=== PATIENT | female | born 1990 | race American Indian/Alaskan Native ===

== ENCOUNTER 2017-04-10 22:06 | Emergency (ER) | payer MEDICAID ==
--- NOTE | 2017-04-11 00:33 | Emergency Department Report ---
HPI - General Chief Complaint: Dental/Oral Time Seen by Provider: 04/11/17 00:17 - HPI HPI: The patient is a 26 year-old female who presents to ED complaining of 8/10 pain in the right side of her mouth x today . Patient states that the pain started this morning, The pain is exacerbated by eating and opening of the mouth. Patient states the pain is alleviated initially with pain medication but comes back. Patient states that it radiates towards ear. Patient describes a as a throbbing, pressure-like sensation. Patient states otherwise well and has no other complaints. Patient has had no fevers and no chills. No chest pain, no shortness of breath. No abdominal pain. No shortness of breath or recent trauma to the face. ED Past Medical Hx - Past Medical History Hx Congestive Heart Failure: No Hx Diabetes: No Hx Psychiatric Treatment: Yes (depression) Hx Asthma: No Hx COPD: No Additional medical history: ULCERATIVE COLITIS - Surgical History Additional Surgical History: Right Hip Surgery. Right Knee surgery. - Social History Smoking Status: Current Every Day Smoker Substance Use Type: None - Medications Home Medications: Home Medications Medication Instructions Recorded Confirmed Last Taken Type Pantoprazole [Protonix TAB] 20 mg PO QDAY #15 tablet. 05/28/15 08/05/15 1 Month Ago Rx QUEtiapine [SEROquel] 200 mg PO TID 08/05/15 08/05/15 1 Month Ago History clonazePAM [KlonoPIN] 2 mg PO DAILY 08/05/15 08/05/15 1 Month Ago History Acetaminophen/Codeine [Tylenol 1 tab PO Q6H #12 tablet 04/11/17 Unknown Rx /Codeine # 3 tab] Amoxicillin [Trimox CAP] 500 mg PO BID #20 capsule 04/11/17 Unknown Rx ED Review of Systems ROS: Stated complaint: SWOLLEN MOUTH Other details as noted in HPI Constitutional: denies: chills, fever Eyes: denies: eye pain, eye discharge, vision change ENT: dental pain. denies: ear pain, throat pain Respiratory: denies: cough, shortness of breath, wheezing Cardiovascular: denies: chest pain, palpitations Endocrine: no symptoms reported Gastrointestinal: denies: abdominal pain, nausea, diarrhea Genitourinary: denies: urgency, dysuria, discharge Musculoskeletal: denies: back pain, joint swelling, arthralgia Skin: denies: rash, lesions Neurological: denies: headache, weakness, paresthesias Psychiatric: denies: anxiety, depression Hematological/Lymphatic: denies: easy bleeding, easy bruising Physical Exam - Physical Exam Vital Signs: Vital Signs 04/11/17 00:04 Temperature 98 F Pulse Rate 70 Respiratory 16 Rate Blood Pressure 141/88 Blood Pressure 141/88 [Left] O2 Sat by Pulse 100 Oximetry Physical Exam: GENERAL: Alert and oriented x3, no apparent distress, Normal Gait, atraumatic. HEAD: Head is normocephalic and a-traumatic. NOSE: Nose symetrical, Nontender,Nares appeared normal. MOUTH:Mouth is well hydrated and without lesions. Tonsils nonerythematous or swollen, Uvula midline, Tongue not elevated. Mucous membranes are moist. Posterior pharynx clear, no exudate or lesions. Patent airways. Missing tooth # 4. Tenderness to palpation of of gone below number four, no gingival enlargement no erythema and no active bleeding seen. LUNGS: Symetrical with respiration, No wheezing, no rales or crackles, CTAB. HEART: S1, S2 present, regular rate and rhythm without murmur, no rubs, no gallops. Non tender to palpation NEUROLOGIC: The patient is cooperative with no focal neurologic deficits. Cranial nerves II through XII are grossly intact. Normal speech. SKIN: Warm and dry, No lesions, No ulceration or induration present. ED Course Vital Signs 04/11/17 00:04 Temperature 98 F Pulse Rate 70 Respiratory 16 Rate Blood Pressure 141/88 Blood Pressure 141/88 [Left] O2 Sat by Pulse 100 Oximetry ED Medical Decision Making - Medical Decision Making 26-year-old female who presents with right-sided Facial pain secondary to dental infection ED course: Patient received 1000 mg of amoxicillin, 2 tablets of Tylenol No. 3. Based upon history and physical examination, pain is a result of an infection of gum number4 and that the pain she feels on the right side of her face and towards the ear is referred pain from this infectious process. She has no evidence of acute impending airway compromise. At this point, patient will be discharged home on some antibiotics and pain trial, she will do well with an outpatient course of antibiotics. Follow up with the Dental [facility] as referred Critical care attestation.: If time is entered above; I have spent that time in minutes in the direct care of this critically ill patient, excluding procedure time. ED Disposition Clinical Impression: Pain, dental Disposition: DC-01 TO HOME OR SELFCARE Is pt being admited?: No Does the pt Need Aspirin: No Condition: Stable Instructions: Toothache (ED), Dental Caries (ED) Prescriptions: Acetaminophen/Codeine [Tylenol /Codeine # 3 tab] 1 tab PO Q6H #12 tablet Amoxicillin [Trimox CAP] 500 mg PO BID #20 capsule Referrals: PRIMARY CARE, [Primary Care Provider] - 3-5 Days [facility] [Outside] - 3-5 Days [facility] [Outside] - 3-5 Days Forms: Accompanied Note, Work/School Release Form(ED) Time of Disposition: 00:38
[2017-04-11] MEDS ORDERED: TYLENOL #3 PO ONE (00:34)
[2017-04-11] MEDS ORDERED: TRIMOX PO ONE (00:34)
[2017-04-11 02:01] VITALS: BP 118/81
== END 2017-04-11 02:01 | disposition home or self-care (01) ==
LOC: ED 22:06
DX: K08.89 Other specified disorders of teeth and supporting structures (principal); F32.9 Major depressive disorder, single episode, unspecified; F17.200 Nicotine dependence, unspecified, uncomplicated
CPT/HCPCS: 99282

== ENCOUNTER 2017-04-18 15:57 | Emergency (ER) | payer MEDICAID ==
[2017-04-18 16:51] LABS: Basophils % (Auto) 0.3 % (0.0-1.8); Eosinophils % (Auto) 0.6 % (0.0-4.3); Hematocrit 33.7 % (30.3-42.9); Hemoglobin 10.5 gm/dl (10.1-14.3); Mean Corpuscular HGB Conc 31 % (30-34); Mean Corpuscular Volume 72 fl (79-97); Platelet Count 444 K/mm3 (140-440); Red Cell Distribution Width 17.5 % (13.2-15.2); White Blood Count 7.9 K/mm3 (4.5-11.0)
[2017-04-18 16:54] LABS: Mean Corpuscular Hemoglobin 22 pg (28-32)
[2017-04-18 18:04] LABS: Bilirubin,Urine NEG (Negative); Blood,Urine SM (Negative); Ketones,Urine NEG (Negative); Leukocyte Esterase,Urine NEG (Negative); Mucus,Urine 1+ /HPF; Nitrite,Urine NEG (Negative); Protein,Urine <15 mg/dL mg/dL (Negative); Urobilinogen,Urine < 2.0 mg/dL (<2.0)
[2017-04-18 18:22] LABS: Alanine Aminotransferase 27 units/L (7-56); Albumin 3.1 g/dL (3.9-5); Albumin/Globulin Ratio 0.6 %; Alkaline Phosphatase 154 units/L (35-129); Anion Gap 21 mmol/L; BUN/Creatinine Ratio 14.28; Bilirubin,Total < 0.20 mg/dL (0.1-1.2); Blood Urea Nitrogen 10 mg/dL (7-17); Calcium 8.6 mg/dL (8.4-10.2); Carbon Dioxide 20 mmol/L (22-30); Glucose 134 mg/dL (65-100); Lipase 25 units/L (13-60); Potassium 4.1 mmol/L (3.6-5.0); Sodium 138 mmol/L (137-145); Total Protein 7.9 g/dL (6.3-8.2)
--- NOTE | 2017-04-18 18:22 | Emergency Department Report ---
HPI - General Chief Complaint: Abdominal Pain Time Seen by Provider: 04/18/17 18:16 - HPI HPI: Complaint: "I have abdominal pain" X This is a 26-year-old -[place]el[place] female brought to ED with suprapubic discomfort, nausea, dysuria, urinary frequency. Patient denies any fever or chills, night sweats. Patient hasn't taking any medication at home. Patient denies any alleviating or exacerbating factors. States pain is cramping like 3/ 10 without radiation. ED Past Medical Hx - Past Medical History Hx Congestive Heart Failure: No Hx Diabetes: No Hx GERD: Yes Hx Psychiatric Treatment: Yes (depression / ANXIETY) Hx Asthma: No Hx COPD: No Additional medical history: ULCERATIVE COLITIS - Surgical History Additional Surgical History: Right Hip Surgery. Right Knee surgery. - Social History Smoking Status: Current Every Day Smoker Substance Use Type: None - Medications Home Medications: Home Medications Medication Instructions Recorded Confirmed Last Taken Type Ciprofloxacin HCl [Ciprofloxacin 500 mg PO Q12HR #14 tab 04/18/17 Unknown Rx TAB] Ketorolac [Toradol] 10 mg PO Q6H PRN #14 tablet 04/18/17 Unknown Rx Prednisone [predniSONE] 2.5 mg PO QDAY 04/18/17 04/18/17 Unknown History hydrOXYzine PAMOATE [Vistaril] 25 mg PO DAILY 04/18/17 04/18/17 Unknown History ED Review of Systems ROS: Stated complaint: ABD PAIN,VOMITTING,FRANCISCO Other details as noted in HPI Comment: All other systems reviewed and negative Constitutional: no symptoms reported Genitourinary: urgency, dysuria, frequency Physical Exam - Physical Exam Vital Signs: Vital Signs 04/18/17 04/18/17 16:16 17:47 Temperature 98.7 F Pulse Rate 110 H Respiratory 17 16 Rate Blood Pressure 100/69 O2 Sat by Pulse 100 Oximetry Physical Exam: Gen. alert and oriented 3 in no distress Head atraumatic normocephalic Eyes PERR LA EOMI Chest regular rate and rhythm normal S1-S2 lungs clear bilaterally Abdomen soft nondistended, nontender Back no point tenderness paravertebral tenderness Neuro no focal deficit. Psych normal mood. ED Course Vital Signs 04/18/17 04/18/17 16:16 17:47 Temperature 98.7 F Pulse Rate 110 H Respiratory 17 16 Rate Blood Pressure 100/69 O2 Sat by Pulse 100 Oximetry ED Medical Decision Making - Lab Data Result diagrams: 04/18/17 16:28 Critical care attestation.: If time is entered above; I have spent that time in minutes in the direct care of this critically ill patient, excluding procedure time. ED Disposition Clinical Impression: UTI (urinary tract infection) Disposition: DC-01 TO HOME OR SELFCARE Is pt being admited?: No Does the pt Need Aspirin: No Condition: Stable Instructions: Abdominal Pain (ED) Prescriptions: Ciprofloxacin HCl [Ciprofloxacin TAB] 500 mg PO Q12HR #14 tab Ketorolac [Toradol] 10 mg PO Q6H PRN #14 tablet PRN Reason: Pain
[2017-04-18 18:35] VITALS: BP 95/64
== END 2017-04-18 18:30 | disposition home or self-care (01) ==
LOC: ED 15:57
DX: N39.0 Urinary tract infection, site not specified (principal); K21.9 Gastro-esophageal reflux disease without esophagitis; F32.9 Major depressive disorder, single episode, unspecified; F41.9 Anxiety disorder, unspecified; F17.200 Nicotine dependence, unspecified, uncomplicated
CPT/HCPCS: 36415; 80053; 81001; 83690; 84703; 85025; 99283

== ENCOUNTER 2017-05-07 08:09 | Emergency (ER) | payer MEDICAID ==
[2017-05-07 08:29] VITALS: BP 106/73
[2017-05-07] MEDS ORDERED: NACL 0.9% 1000 ML 1,000 ML IV ONE (10:17)
[2017-05-07] MEDS ORDERED: BENADRYL IV ONE (10:18)
[2017-05-07] MEDS ORDERED: REGLAN IV ONE (10:18)
[2017-05-07 10:35] LABS: Basophils % (Auto) 0.2 % (0.0-1.8); Eosinophils % (Auto) 0.1 % (0.0-4.3); Hematocrit 33.5 % (30.3-42.9); Hemoglobin 10.6 gm/dl (10.1-14.3); Mean Corpuscular HGB Conc 32 % (30-34); Platelet Count 424 K/mm3 (140-440); Red Blood Count 4.85 M/mm3 (3.65-5.03); Red Cell Distribution Width 16.9 % (13.2-15.2); White Blood Count 11.6 K/mm3 (4.5-11.0)
[2017-05-07 10:37] LABS: Mean Corpuscular Hemoglobin 22 pg (28-32); Mean Corpuscular Volume 69 fl (79-97)
[2017-05-07 10:57] LABS: Blood Urea Nitrogen 10 mg/dL (7-17); Carbon Dioxide 22 mmol/L (22-30)
[2017-05-07 10:58] LABS: Alanine Aminotransferase 15 units/L (7-56); Albumin 2.9 g/dL (3.9-5); Albumin/Globulin Ratio 0.6 %; Alkaline Phosphatase 132 units/L (35-129); Anion Gap 20 mmol/L; Calcium 8.8 mg/dL (8.4-10.2); Chloride 96.7 mmol/L (98-107); Glucose 85 mg/dL (65-100); Lipase 22 units/L (13-60); Potassium 4.2 mmol/L (3.6-5.0); Sodium 134 mmol/L (137-145); Total Protein 8.1 g/dL (6.3-8.2)
--- NOTE | 2017-05-07 11:17 | Cat Scan Report ---
CT scan of head without contrast: History: Headache for 3 days. Findings: Ventricles are normal in size and midline in location. No evidence of acute ischemia, hemorrhage or mass. No extra-axial fluid collection. Normal brainstem and cerebellum. Normal sinuses and mastoid air cells. Impression: No acute intracranial abnormality.
[2017-05-07] MEDS ORDERED: TORADOL IV ONE (11:49)
[2017-05-07] MEDS ORDERED: TORADOL ONE (11:49)
== END 2017-05-07 12:26 | disposition left against medical advice (07) ==
LOC: ED 08:09
DX: M79.1 Myalgia (principal); R51 Headache; G43.909 Migraine, unspecified, not intractable, without status migrainosus; F17.200 Nicotine dependence, unspecified, uncomplicated
CPT/HCPCS: 36415; 70450; 80053; 83690; 84703; 85025; 96361; 96374; 96375; 99284; J1200; J1885; J2765; J7030